=== PATIENT | female | born 1960 | race Caucasian/White ===

== ENCOUNTER 2022-08-08 11:23 | Outpatient (CLI) | payer OTHER, SELFPAY ==
[2022-08-08 21:34] LABS: Alanine Aminotransferase* 12 U/L (4-35); Aspartate Amino Transferase* 25 U/L (12-35); Cholesterol* 266 mg/dL (90-199); HDL Cholesterol* 93 mg/dL (>=50); LDL Cholesterol Calculated 161 mg/dL (<100); Triglycerides* 60 mg/dL (40-149)
== END 2022-08-08 11:24 | disposition home or self-care (01) ==
PROVIDERS: PCP Physician Assistant Medical; Visit Provider Physician Assistant Medical
DX: E78.2 Mixed hyperlipidemia (principal); M85.80 Other specified disorders of bone density and structure, unspecified site; F41.9 Anxiety disorder, unspecified; F32.A Depression, unspecified
CPT/HCPCS: 80061; 84450; 84460

== ENCOUNTER 2022-08-29 12:53 | Outpatient (CLI) | payer OTHER, SELFPAY ==
--- NOTE | 2022-08-29 13:00 | CRLHL7_ITS ---
For Patients: As a result of the Century Cures Act, medical imaging exams and procedure reports are released immediately into your electronic medical record. You may view this report before your referring provider. If you have questions, please contact your health care provider. DXA BONE MINERAL DENSITY STUDY Reason for exam: Screening. Current height (in): 67. Weight (lb): 142. Menopause age: 57. Ethnicity: White. 1. Have you had a previous hip or vertebral fracture? No. 2. Have you had any fractures during your adult life which did not result from significant trauma (e.g., auto accident)? Yes. 3. Did either of your parents have a hip fracture? No. 4. Do you smoke? No. 5. Have you ever taken Glucocorticoids? No. 6. Do you have rheumatoid arthritis? No. 7. Do you have secondary osteoporosis? No. 8. Do you drink 3 or more alcoholic drinks per day? Yes. 9. Are you being treated for osteoporosis? No. 10. Have you ever taken any of the following medications: Actonel, Evista, Fosamax, Miacalcin, Reclast, Boniva, Forteo, HRT (i.e. estrogen/hormone therapy), Protelos, Prolia, Vitamin D, Calcium, other ??? please specify. ANSWER: Yes, vitamin D, calcium. 11. Do you have any of the following medical conditions: Anorexia or bulimia, asthma or emphysema, end stage renal disease, hyperparathyroidism, any seizure disorders, cancer, inflammatory bowel diseases, hysterectomy, other ??? please specify. ANSWER: No. 12. What was your maximum height (inches)? 67. 13. Do you perform weight bearing exercise regularly? Yes. 14. Do you regularly consume dairy products? No. 15. Do you drink caffeinated beverages? Yes. If female: 16. At what age did your period start? 12. 17. Are you premenopausal? No. 18. How many full term pregnancies have you had? 2. 19. Have you ever missed your period for more than 6 months in a row (not including or menopause)? No. TECHNIQUE: Bone mineral density study was performed using the [employer]. FINDINGS: The results of the study expressed as bone mineral density (BMD) are as follows: Lumbar spine L1 to L4: BMD: 1.065 g/cm2. T-score: 0.2. Z-score: 1.8. Neck Left: BMD: 0.683 g/cm2. T-score: -1.5. Z-score: -0.1. Right: BMD: 0.784 g/cm2. T-score: -0.6 . Z-score: 0.8. Total Left: BMD: 0.774 g/cm2. T-score: -1.4.. Z-score: -0.2. Right: BMD: 0.823 g/cm2. T-score: -1.0. Z-score: 0.2. IMPRESSION: Osteopenia. *Comparison exams done prior to 04/2020 were performed on different unit, [facility]. COMPARISON: Compared with scan of 06/30/2018, the bone mineral density has decreased by 2.3 percent at the spine and decreased by 1.1 percent at the hip. FRAX 10-year Fracture Risk Major Osteoporotic Fracture: 16 percent Hip Fracture: 2.2 percent Reported Risk Factors: [place] () Neck BMD=0.683, BMI=22.2, previous fracture, alcohol use Sherry Faith M.D. Diagnostic/Breast Radiologist [email or web address] LUIS EDUARDO/Dictated by: Sherry Faith MD @ 08/29/2022 2:52:00 PM (Electronically Signed)
== END 2022-08-29 12:54 | disposition home or self-care (01) ==
LOC: RAD 12:54
PROVIDERS: PCP Physician Assistant Medical; Visit Provider Physician Assistant Medical
DX: Z13.820 Encounter for screening for osteoporosis (principal); M85.89 Other specified disorders of bone density and structure, multiple sites; Z78.0 Asymptomatic menopausal state
CPT/HCPCS: 77080

== ENCOUNTER 2023-03-28 07:18 | Outpatient (CLI) | payer OTHER, SELFPAY ==
--- NOTE | 2023-03-28 08:23 | W.ANESCHARGE ---
Anesthesia Charges Start Date/Time Anesthesia Start Date: 03/28/23 Anesthesia Start Time: 08:03 Stop Date/Time Anesthesia Stop Date: 03/28/23 Anesthesia Stop Time: 08:45
--- NOTE | 2023-03-28 08:46 | W.ANESCHARGE ---
Anesthesia Charges Start Date/Time Anesthesia Start Date: 03/28/23 Anesthesia Start Time: 08:03 Stop Date/Time Anesthesia Stop Date: 03/28/23 Anesthesia Stop Time: 08:45
== END 2023-03-28 07:19 | disposition home or self-care (01) ==
LOC: OP CLINIC 07:19
PROVIDERS: PCP Physician Assistant Medical; Visit Provider Surgery
DX: K92.1 Melena (principal); K57.30 Diverticulosis of large intestine without perforation or abscess without bleeding; K64.8 Other hemorrhoids
CPT/HCPCS: 45378; 811; 812; J2704; J3490

== ENCOUNTER 2023-09-30 13:41 | Outpatient (CLI) | payer OTHER, SELFPAY ==
--- NOTE | 2023-09-30 14:00 | CRLHL7_ITS ---
For Patients: As a result of the Century Cures Act, medical imaging exams and procedure reports are released immediately into your electronic medical record. You may view this report before your referring provider. If you have questions, please contact your health care provider. BILATERAL SCREENING MAMMOGRAM WITH COMPUTER-AIDED DETECTION AND TOMOSYNTHESIS TECHNIQUE: CC and MLO views were obtained. These mammographic images have been obtained using full-field digital technique. These mammographic images were interpreted with the benefit of computer-aided detection. Breast Tomosynthesis was used in this interpretation. COMPARISON FILM: 04/30/22, 01/06/21, 11/13/19. FINDINGS: The breasts are heterogeneously dense, which may obscure small masses IMPRESSION: There is no radiographic evidence for malignancy. ASSESSMENT: BI-RADS Category 1: Negative RECOMMENDATION: Routine screening mammogram in 1 year. A lay language report of this examination will be provided to the patient. Luis Caldwell M.D. Diagnostic Radiologist [email or web address] LUIS EDUARDO/Dictated by: Luis Caldwell MD @ 10/01/2023 8:41:00 AM (Electronically Signed)
== END 2023-09-30 13:42 | disposition home or self-care (01) ==
LOC: MAMMO 13:41
PROVIDERS: PCP Physician Assistant Medical; Visit Provider Physician Assistant Medical
DX: Z12.31 Encounter for screening mammogram for malignant neoplasm of breast (principal); R92.2 Inconclusive mammogram
CPT/HCPCS: 77063; 77067

== ENCOUNTER 2023-11-18 17:24 | Emergency (ER) | payer OTHER, SELFPAY ==
[2023-11-18 17:43] VITALS: BP 152/72; PULSE 61; RESP 18; TEMP 36.6; O2SAT 96; BMI 21.1
[2023-11-18] MEDS: FLUORESCEIN SODIUM TOPICAL STRIP 1 STRIP EYE-RIGHT (18:40)
[2023-11-18] MEDS: TETRACAINE 0.5% OPHTH 1 DROP EYE-RIGHT (18:40)
--- NOTE | 2023-11-18 18:48 | ED.EYEPROB ---
HPI - Eye Problem General Date Seen: 11/18/23 Chief complaint: Eye Problems Stated complaint: eye irritation Time Seen by Provider: 11/18/23 17:48 Source: patient Mode of arrival: ambulatory Limitations: no limitations History of Present Illness HPI Narrative: Patient is a 63-year-old female who some she had right eye discharge that started earlier today. She states she woke up and was asymptomatic. She went outside into her [place] and by the time she came back and she noted copious drainage from right eye. She has never had symptoms like this before. She states vision in the right eye is blurry but not black. Does have pain in the right upper portion of the eye. Does not remember getting anything in her eye. Denies any injuries to the eye. Does not have pain with extraocular movement. Says she has noticed some swelling to the eye. Related Data Home Medications Medication Instructions Recorded Confirmed ibuprofen 400 mg tablet 400 mg PO Q6H PRN moderate pain 02/28/23 05/24/23 calcium carbonate 600 mg calcium 600 mg PO QDAY 05/24/23 05/24/23 (1,500 mg) tablet (Calcium) Previous Rx's Medication Instructions Recorded sertraline 50 mg tablet 50 mg PO QDAY #90 tabs 05/24/23 trazodone 100 mg tablet 100 - 200 mg (1 - 2 x 100 mg) PO 05/24/23 QDAY #180 tabs Allergies Allergy/AdvReac Type Severity Reaction Status Date / Time No Known Drug Allergies Allergy Verified 05/24/23 13:24 Review of Systems Status of ROS: Reports: 6 or more systems reviewed and unremarkable except as noted in History and below PFSH PFSH Medical History Right wrist fracture ?S62.101A - Fracture of unspecified carpal bone, right wrist, initial encounter for closed fracture (ICD-10) Polyp of colon ?K63.5 - Polyp of colon (ICD-10) Rectal bleeding ?K62.5 - Hemorrhage of anus and rectum (ICD-10) Eating disorder (12/31/11) ?F50.9 - Eating disorder, unspecified (ICD-10) Closed fracture of head of humerus ?S42.293A - Other displaced fracture of upper end of unspecified humerus, initial encounter for closed fracture (ICD-10) Surgical History S/P ORIF (open reduction internal fixation) fracture (04/23/13) ?Z98.890 - Other specified postprocedural states (ICD-10) ?Z87.81 - Personal history of (healed) traumatic fracture (ICD-10) History of knee surgery ?Z98.890 - Other specified postprocedural states (ICD-10) Family History Father Cardiovascular disease Mother Mental disorder Osteoporosis Social History Smoking Status: Never smoker Do you use any of these nicotine containing products: None Second hand tobacco smoke exposure: No Little interest or pleasure in doing things: not at all Feeling down, depressed, or hopeless: not at all Exam Narrative: Exam Narrative: Const: Well-nourished, Well-developed, in mild distress Eyes: PERRL, conjunctival injection nose to the right RI, erythema seen around the right eye. Copious green drainage coming from the right eye HENT: Atraumatic external nose and ears. Moist mucous membranes. Neck: Symmetric, trachea midline, No thyromegaly. MSK:Extremities w/o deformity, Normal Active ROM Skin: Warm, Dry. No rashes or lesions. Neuro: Normal Muscle tone, No focal neurological deficits. Psych: Awake, Alert, & Oriented x3. Appropriate mood and affect. Const: Vital Signs, click to edit/add: Vital Signs - 24 hr 11/18/23 17:43 Temperature 97.9 F Pulse Rate [Pulse Oximeter] 61 Respiratory Rate 18 Blood Pressure [Ri ght Upper Arm] 152/72 H Pulse Oximetry 96 Oxygen Delivery Me thod Room Air Course Vital Signs Vital signs: Initial Vital Signs Temperature 97.9 F 11/18/23 17:43 Temperature Source Temporal Artery Scan 11/18/23 17:43 Pulse Rate 61 11/18/23 17:43 Pulse Rhythm Regular 11/18/23 17:43 Respiratory Rate 18 11/18/23 17:43 Blood Pressure 152/72 H 11/18/23 17:43 Blood Pressure Mean 98 11/18/23 17:43 Blood Pressure Position Sitting 11/18/23 17:43 Pulse Oximetry 96 11/18/23 17:43 Oxygen Delivery Method Room Air 11/18/23 17:43 Vital Signs Temperature 97.9 F 11/18/23 17:43 Pulse Rate 61 11/18/23 17:43 Respiratory Rate 18 11/18/23 17:43 Blood Pressure 152/72 H 11/18/23 17:43 Pulse Oximetry 96 11/18/23 17:43 Oxygen Delivery Method Room Air 11/18/23 17:43 Temperature 97.9 F 11/18/23 17:43 Pulse Rate 61 11/18/23 17:43 Respiratory Rate 18 11/18/23 17:43 Blood Pressure 152/72 H 11/18/23 17:43 Pulse Oximetry 96 11/18/23 17:43 Oxygen Delivery Method Room Air 11/18/23 17:43 Medications Administered Medications: Generic Name Dose Route Start Last Admin Trade Name Freq PRN Reason Stop Dose Admin Erythromycin 1 applic 11/18/23 18:47 11/18/23 18:50 Erythromycin 1 Gm Tube EYE-BOTH 11/18/23 18:48 1 applic ONCE ONE Administration MDM - Eye Problem MDM Narrative Medical decision making narrative: Patient is a 63-year-old female presenting for right eye pain and drainage with vision loss. Has never had symptoms like this before. Her vision in the left eye without glasses is 20/40 and in the right eye is 20/100 at this time. I looked at her eye under a black light did not see any acute abnormalities. I did do a slit lamp exam he could not see any clear abnormalities. No new thing I did notice is the conjunctivitis to the right eye and the no bowel amount of drainage. With her vision issues I informed them I was wanting to call an power system engineer at an outside hospital to get their opinion. They told me they do not want to drive to the [facility] for possible transfer or appointment and just want to follow-up outpatient. They do not want to wait for the consult. They state they can easily get in with her venereal disease investigator who will then get them to an power system engineer. I did give them information for an power system engineer in [place]. I explained to them the seriousness at this time and informed them they need emergent follow-up within 48 hours with the preferably being within 24 hours. They state they understand. At this time I will discharge them. Discharge Plan Discharge Clinical Impression: Bacterial conjunctivitis Patient Disposition: Home, Self-Care Condition: Stable Instructions: Conjunctivitis (ED) Additional Instructions: Make sure you see your venereal disease investigator tomorrow. I recommend seeing Ophthalmology within 24-48 hours. [facility] and you can call the clinic to set up an appointment. Use the erythromycin eye ointment every 6 hours for the next 7 days Prescriptions: No Action calcium carbonate [Calcium 600] 600 mg calcium (1,500 mg) tablet 600 mg PO QDAY sertraline 50 mg tablet 50 mg PO QDAY Qty: 90 3RF trazodone 100 mg tablet 100 - 200 mg PO QDAY Qty: 180 3RF ibuprofen 400 mg tablet 400 mg PO Q6H PRN (Reason: moderate pain) Follow Up/Referrals: Conor Ferrell PA-C [Primary Care Provider] - Stand Alone Forms: [employer] Info Instructions
[2023-11-18] MEDS: ERYTHROMYCIN 1 GM TUBE 1 APPLIC EYE-BOTH (18:50)
== END 2023-11-18 19:09 | disposition home or self-care (01) ==
PROVIDERS: Emergency Provider Student in an Organized Health Care Education/Training Program; PCP Physician Assistant Medical
DX: H10.021 Other mucopurulent conjunctivitis, right eye (principal)
CPT/HCPCS: 99283; A9270

== ENCOUNTER 2023-11-29 08:21 | Outpatient (CLI) | payer OTHER, SELFPAY | END 2023-11-29 08:22 | disposition home or self-care (01) | PROVIDERS: PCP Physician Assistant Medical; Visit Provider Physician Assistant Medical | DX: Z00.00 Encounter for general adult medical examination without abnormal findings (principal); E78.5 Hyperlipidemia, unspecified; L65.9 Nonscarring hair loss, unspecified | CPT/HCPCS: 80053; 80061; 82728; 84443 ==

== ENCOUNTER 2024-04-15 13:59 | Outpatient (CLI) | payer MEDICARE, OTHER, SELFPAY ==
--- NOTE | 2024-04-15 14:30 | XR_ITS ---
Patient: BRIANNA GIRON Facility:?[facility] Patient ID:?[id number] Site Patient ID:?[id number]. Site :?[id number] Study:?DEXA-Bone Density -04/15/2024 2:57:25 PM Ordering Physician:DAVIN Final Report: DXA BONE MINERAL DENSITY STUDY Reason for exam: Asymptomatic menopausal state. Current height (in): 67. Weight (lb): 138. Menopause age: 57. Ethnicity: White. 1. Have you had a previous hip or vertebral fracture? No. 2. Have you had any fractures during your adult life which did not result from significant trauma (e.g., auto accident)? Yes. 3. Did either of your parents have a hip fracture? No. 4. Do you smoke? No. 5. Have you ever taken Glucocorticoids? No. 6. Do you have rheumatoid arthritis? No. 7. Do you have secondary osteoporosis? No. 8. Do you drink 3 or more alcoholic drinks per day? No. 9. Are you being treated for osteoporosis? No. 10. Have you ever taken any of the following medications: Actonel, Evista, Fosamax, Miacalcin, Reclast, Boniva, Forteo, HRT (i.e. estrogen/hormone therapy), Protelos, Prolia, Vitamin D, Calcium, other ? please specify. ANSWER: Yes, vitamin D and calcium. 11. Do you have any of the following medical conditions: Anorexia or bulimia, asthma or emphysema, end stage renal disease, hyperparathyroidism, any seizure disorders, cancer, inflammatory bowel diseases, hysterectomy, other ? please specify. ANSWER: No. 12. What was your maximum height (inches)? 67. 13. Do you perform weight bearing exercise regularly? Yes. 14. Do you regularly consume dairy products? No. 15. Do you drink caffeinated beverages? Yes. 16. At what age did your period start? 12. 17. Are you premenopausal? No. 18. How many full term pregnancies have you had? 2. 19. Have you ever missed your period for more than 6 months in a row (not including or menopause)? No. TECHNIQUE: Bone mineral density study was performed using the [employer]. FINDINGS: The results of the study expressed as bone mineral density (BMD) are as follows: Lumbar spine L1 to L4: BMD: 1.011 g/cm2. T-score: -0.3. Z-score: 1.4. Neck Left: BMD: 0.635 g/cm2. T-score: -1.9. Z-score: -0.4. Right: BMD: 0.850 g/cm2. T-score: 0.0. Z-score: 1.5. Total Left: BMD: 0.773 g/cm2. T-score: -1.4. Z-score: -0.2. Right: BMD: 0.805 g/cm2. T-score: -1.1. Z-score: 0.1. IMPRESSION: Osteopenia. *Comparison exams done prior to 04/2020 were performed on different unit, [facility]. COMPARISON: Compared with scan of 08/29/2022, the bone mineral density has decreased by 5.1 percent at the spine and decreased by 1.2 percent at the hip. Compared with scan of 06/30/2018, the bone mineral density has decreased by 2.3 percent at the spine and decreased by 1.1 percent at the hip. FRAX 10-year Fracture Risk Major Osteoporotic Fracture: 16 percent Hip Fracture: 2.4 percent Reported Risk Factors: [place] () Neck BMD=0.635, BMI=21.6, previous fracture Luis Caldwell M.D. Diagnostic Radiologist [email or web address]/sp R& Transcribed: 8:02 p.m. SP/Dictated by: Luis Caldwell MD @ 04/16/2024 9:20:00 AM Signed by:?Luis Caldwell MD @04/17/2024 5:25:06 AM (Electronic Signature)
== END 2024-04-15 14:00 | disposition home or self-care (01) ==
LOC: RAD 14:01
PROVIDERS: PCP Physician Assistant Medical; Visit Provider Physician Assistant Medical
DX: Z78.0 Asymptomatic menopausal state (principal); M85.89 Other specified disorders of bone density and structure, multiple sites
CPT/HCPCS: 77080

== ENCOUNTER 2024-08-14 13:48 | Emergency (ER) | payer MEDICARE, OTHER, SELFPAY ==
[2024-08-14] VITALS (15 sets, daily range): BP systolic 142–160; BP diastolic 70–85; PULSE 66–76; RESP 14–20; TEMP 36.4–36.8; O2SAT 94–100; BMI 21.9
--- NOTE | 2024-08-14 13:59 | ED.NURSE ---
Jewelry removed for imaging. 4 Rings, necklace, and one pair of earrings given to , Lee.
--- NOTE | 2024-08-14 14:01 | CRLHL7_ITS ---
For Patients: As a result of the Century Cures Act, medical imaging exams and procedure reports are released immediately into your electronic medical record. You may view this report before your referring provider. If you have questions, please contact your health care provider. INDICATION: Fall TECHNIQUE: CT chest, abdomen and pelvis acquired 69 milliliters Isovue 370 contrast. COMPARISON: Cervical spine same day FINDINGS: CHEST: Lungs and Airways: Motion. Subsegmental atelectasis. Lobulated right lower lobe indeterminate pulmonary nodule measuring 19 millimeters. Ground-glass opacity in the right apex measuring 12 millimeters. Axial image 33. no endoluminal lesion. Heart and Mediastinum: The visualized portions of the thyroid are normal. No axillary or supraclavicular lymphadenopathy. No mediastinal, hilar or retrocrural lymphadenopathy. Normal heart size. Normal caliber aorta. Atherosclerotic coronary artery calcifications. Pleura: Less than 1 millimeter trace right apical pneumothorax. ABDOMEN: Liver: Normal enhancement. No focal suspicious hepatic lesions. Gallbladder and biliary: 4 millimeter nodular focus abutting the gallbladder wall may reflect an adherent stone versus polyp. Normal caliber bile ducts. Spleen: Normal size and enhancement. Pancreas: Normal enhancement without peripancreatic inflammatory changes or ductal dilatation. Adrenal glands: Normal adrenal glands. Kidneys and ureters: Normal enhancement. No radio-opaque calculi. No hydroureteronephrosis. GI tract: The stomach is relatively decompressed. Normal caliber small and large bowel loops. Normal appendix. Vascular structures: Normal caliber aorta with atherosclerotic calcifications. Lymph nodes: No lymphadenopathy in the abdomen or pelvis by size criteria. Peritoneum: No free air, free fluid, or focal drainable fluid collection. PELVIS: Genitourinary system: Normal urinary bladder. Age-appropriate uterus. SKELETAL STRUCTURES AND SOFT TISSUES: Tiny fat containing umbilical hernia. Refer to dedicated CT thoracic and lumbar spine of same day for evaluation of the vertebral column. Acute distal right comminuted clavicular fracture. Posterior right 2nd, 3rd, 4th, 5th, and likely 6th acute nondisplaced rib fractures. Potential additional nondisplaced fracture component in the lateral right 6th and 7th ribs. IMPRESSION: 1. Acute distal right comminuted clavicular fracture. Posterior right 2nd, 3rd, 4th, 5th, and likely 6th acute nondisplaced rib fractures. Potential additional nondisplaced fracture component in the lateral right 6th and 7th ribs. Associated less than 1 millimeter trace right apical pneumothorax. 2. Lobulated right lower lobe indeterminate pulmonary nodule measuring 19 millimeters. Differential considerations include underlying primary lung cancer. Consider further assessment with nonemergent tissue sampling versus PET-CT. 3. Additional ill-defined ground-glass opacity in the right apex may reflect underlying pulmonary contusion versus nodule. Attention on follow-up exams. 4. 4 millimeter nodular focus abutting the gallbladder wall may reflect an adherent stone versus polyp. 5. Refer to dedicated CT thoracic and lumbar spine of same day for evaluation of the vertebral column. Please note that all CT scans at this facility use dose modulation, iterative reconstruction, and/or weight-based dosing when appropriate to reduce radiation dose to as low as reasonably achievable. Dictated by Luis Munguia MD @ 08/14/2024 2:53:05 PM (Electronically Signed)
--- NOTE | 2024-08-14 14:01 | CRLHL7_ITS ---
For Patients: As a result of the Century Cures Act, medical imaging exams and procedure reports are released immediately into your electronic medical record. You may view this report before your referring provider. If you have questions, please contact your health care provider. INDICATION: .FALL TECHNIQUE: CT cervical spine without contrast. COMPARISON: Head and chest abdomen and pelvis of same day. FINDINGS: Acute nondisplaced posterior right 2nd and 3rd rib fractures. Associated trace, less than 1 millimeter, right apical pneumothorax. No discrete acute cervical fracture.. No listhesis. Bony mineralization is age appropriate. No prevertebral soft tissue hematoma or swelling. No soft tissue abnormality is identified. Multilevel spondylosis. No pathologically enlarged lymph nodes. Thyroid is normal. IMPRESSION: 1. Acute nondisplaced posterior right 2nd and 3rd rib fractures. Associated trace, less than 1 millimeter, right apical pneumothorax. 2. No discrete acute cervical fracture. Please note that all CT scans at this facility use dose modulation, iterative reconstruction, and/or weight-based dosing when appropriate to reduce radiation dose to as low as reasonably achievable. Dictated by Luis Munguia MD @ 08/14/2024 2:39:09 PM (Electronically Signed)
--- NOTE | 2024-08-14 14:02 | CRLHL7_ITS ---
For Patients: As a result of the Century Cures Act, medical imaging exams and procedure reports are released immediately into your electronic medical record. You may view this report before your referring provider. If you have questions, please contact your health care provider. INDICATION: Trauma, fall. TECHNIQUE: CT thoracic spine without contrast. COMPARISON: CT same day. FINDINGS: No acute vertebral fracture. No listhesis. Bony mineralization is age appropriate. No prevertebral soft tissue hematoma or swelling. No soft tissue abnormality is identified. Mild generalized disc space narrowing. IMPRESSION: No sign of acute vertebral injury. Please note that all CT scans at this facility use dose modulation, iterative reconstruction, and/or weight-based dosing when appropriate to reduce radiation dose to as low as reasonably achievable. Dictated by Luis Munguia MD @ 08/14/2024 2:55:32 PM (Electronically Signed)
--- NOTE | 2024-08-14 14:02 | CRLHL7_ITS ---
For Patients: As a result of the Cures Act, medical imaging exams and procedure reports are released immediately into your electronic medical record. You may view this report before your referring provider. If you have questions, please contact your health care provider. INDICATION: Fall. TECHNIQUE: CT lumbar spine without contrast. COMPARISON: Same day. FINDINGS: No acute fracture. No listhesis. Bony mineralization is age appropriate. No prevertebral soft tissue hematoma or swelling. No soft tissue abnormality is identified. Mild multilevel lumbar spondylosis. IMPRESSION: Unremarkable lumbar spine CT. Please note that all CT scans at this facility use dose modulation, iterative reconstruction, and/or weight-based dosing when appropriate to reduce radiation dose to as low as reasonably achievable. Dictated by Luis Munguia MD @ 08/14/2024 2:57:39 PM (Electronically Signed)
--- NOTE | 2024-08-14 14:02 | CRLHL7_ITS ---
For Patients: As a result of the Century Cures Act, medical imaging exams and procedure reports are released immediately into your electronic medical record. You may view this report before your referring provider. If you have questions, please contact your health care provider. INDICATION: Fall. TECHNIQUE: Head CT without contrast. COMPARISON: None. FINDINGS: Periventricular areas of low attenuation, likely due to chronic small vessel ischemic changes. Generalized volume loss. Atherosclerosis. Beam hardening artifact predominantly at the level of skullbase degrades fine detail evaluation. No intracranial hemorrhage. No discrete mass or mass effect. There is no midline shift. The basilar cisterns are patent. No hydrocephalus. The saba-white matter interface is otherwise preserved. No acute osseous abnormality. No extracalvarial soft tissue abnormality. The mastoid air cells are clear. Trace air-fluid level in the sphenoid sinus. The visualized portions of the orbits and globes are unremarkable. IMPRESSION: No acute intracranial process per unenhanced head CT. Please note that all CT scans at this facility use dose modulation, iterative reconstruction, and/or weight-based dosing when appropriate to reduce radiation dose to as low as reasonably achievable. Dictated by Luis Munguia MD @ 08/14/2024 2:32:31 PM (Electronically Signed)
--- NOTE | 2024-08-14 14:39 | ED_ITS ---
HPI - General Adult General Chief complaint: Fall/Minor Trauma Stated complaint: Fall from horse Time Seen by Provider: 08/14/24 14:01 Source: patient Mode of arrival: EMS Limitations: no limitations History of Present Illness HPI narrative: 64-year-old female coming in today after getting bucked off her horse. Patient states she was riding fairly large worse when it got spooked and she fell off the horse onto her side. She is complaining of head, neck, shoulder, arm, chest pain. All the pain is on the right side. She denies abdomen or pelvic pain. No pain of the lower extremities. Related Data Home Medications ?Medication ?Instructions ?Recorded ?Confirmed ibuprofen 400 mg tablet 400 mg PO Q6H PRN moderate pain 02/28/23 05/20/24 calcium carbonate (Calcium 600) 600 mg PO QDAY 05/24/23 05/20/24 [id number] 8 mg-folic 400 1 tab PO QDAY 05/04/24 05/20/24 mcg-K 50 mcg-lutein 300 mcg tablet (Centrum Silver Women) sertraline 50 mg tablet 50 mg PO QDAY 05/04/24 05/20/24 trazodone 100 mg tablet 100 mg PO QHS PRN 05/04/24 05/20/24 Allergies Allergy/AdvReac Type Severity Reaction Status Date / Time No Known Drug Allergies Allergy Verified 08/14/24 14:09 Review of Systems Status of ROS: Reports: 10 or more systems reviewed and unremarkable except as noted in History and below PFSH PFS Medical History Right wrist fracture ?S62.101A - Fracture of unspecified carpal bone, right wrist, initial encounter for closed fracture (ICD-10) Bacterial conjunctivitis ?H10.9 - Unspecified conjunctivitis (ICD-10) Polyp of colon ?K63.5 - Polyp of colon (ICD-10) Rectal bleeding ?K62.5 - Hemorrhage of anus and rectum (ICD-10) Eating disorder (12/31/11) ?F50.9 - Eating disorder, unspecified (ICD-10) Closed fracture of head of humerus ?S42.293A - Other displaced fracture of upper end of unspecified humerus, initial encounter for closed fracture (ICD-10) Surgical History S/P ORIF (open reduction internal fixation) fracture (04/23/13) ?Z98.890 - Other specified postprocedural states (ICD-10) ?Z87.81 - Personal history of (healed) traumatic fracture (ICD-10) History of knee surgery ?Z98.890 - Other specified postprocedural states (ICD-10) Family History Father Cardiovascular disease Mother Mental disorder Osteoporosis Social History Smoking Status: Never smoker Do you use any of these nicotine containing products: None Second hand tobacco smoke exposure: No How often do you have a drink containing alcohol: 2-3 times a week AUDIT-C Alcohol total score: 3 Non-prescribed substance use: denies use Little interest or pleasure in doing things: not at all Feeling down, depressed, or hopeless: several days Exam Narrative: Exam Narrative: Well-nourished well-developed patient, extremely anxious. Alert and oriented x3. Answers questions appropriately. Thoughts are goal oriented and rational. No tangential or magical thinking noted. Patient speaks in full sentences without needing to catch her breath. GCS is 15. Patient is speaking and breathing without difficulty. There is no obvious significant bleeding noted. Patient's responses are heightened, with light touch to anywhere in the body patient yells in discomfort. She had to be redirected to really focus on where the pain is located. HEENT: Normocephalic atraumatic. Pupils are equally round reactive to light. Extraocular muscles are intact. Conjunctivae are moist without any icterus noted. Moist mucous membranes. Posterior pharynx is normal. No trauma noted to the inside of the mouth. Neck is soft without any lymphadenopathy or thyromegaly. No masses are appreciated. Cardiovascular: Heart is regular rate and rhythm S1 and S2 are present without any murmurs. Lungs: Clear to auscultation bilaterally no wheezes rhonchi or rales are appreciated. Deep breaths causes pain on the right lateral thorax. Patient has tenderness over the right clavicle. Abdomen: Soft and nontender nondistended with normal bowel sounds. No guarding or rebound. No masses or organomegaly appreciated. Extremities: Bilateral lower extremities are without edema. Normal DP and PT pulses. No tenderness to palpation of the pelvis. Moves lower extremities without difficulty. Skin: Well perfused without any obvious rashes. Back: Normal appearance. Patient has no tenderness to palpation at the thoracic or lumbar spine. She complains of pain to palpation of the neck. Const: Vital Signs, click to edit/add: Vital Signs - 24 hr 08/14/24 13:48 Temperature 98.3 F Pulse Rate [Pulse Oximeter] 76 Respiratory Rate 20 Blood Pressure [Le ft Upper Arm] 151/70 H Pulse Oximetry 98 Oxygen Delivery Me thod Room Air Course Course ED Course: Given the amount of pain the patient was in and her inability to focus on where the exact pain was coming from, we did decide to buck scan her: Head CT without abnormality. Cervical spine CT showing Acute nondisplaced posterior right 2nd and 3rd rib fractures. Associated trace, less than 1 millimeter, right apical pneumothorax. Thoracic spine unremarkable. Lumbar spine unremarkable. Chest, abdomen, pelvis CT showed fractures of ribs 2, 3, 4, 5, 6 and potentially 7. Clavicular fracture. Also noted pulmonary nodule concerning for malignancy. Spoke to Dr. Florence, at [facility] [place] patient for transfer. Vital Signs Vital signs: Initial Vital Signs Temperature 98.3 F 08/14/24 13:48 Temperature Source Temporal Artery Scan 08/14/24 13:48 Pulse Rate 76 08/14/24 13:48 Pulse Rhythm Regular 08/14/24 13:48 Respiratory Rate 08/14/24 13:48 Blood Pressure 151/70 H 08/14/24 13:48 Blood Pressure Mean 97 08/14/24 13:48 Blood Pressure Position Sitting 08/14/24 13:48 Pulse Oximetry 98 08/14/24 13:48 Oxygen Delivery Method Room Air 08/14/24 13:48 Vital Signs Temperature 98.3 F 08/14/24 13:48 Pulse Rate 76 08/14/24 13:48 Respiratory Rate 20 08/14/24 13:48 Blood Pressure 151/70 H 08/14/24 13:48 Pulse Oximetry 98 08/14/24 13:48 Oxygen Delivery Method Room Air 08/14/24 13:48 Temperature 98.3 F 08/14/24 13:48 Pulse Rate 76 08/14/24 13:48 Respiratory Rate 20 08/14/24 13:48 Blood Pressure 151/70 H 08/14/24 13:48 Pulse Oximetry 98 08/14/24 13:48 Oxygen Delivery Method Room Air 08/14/24 13:48 Medical Decision Making MDM Narrative Medical decision making narrative: 64-year-old female status post falling off a horse with multiple rib fractures, clavicular fracture. Patient will be sent to [facility] [place] further management. I did discuss with the patient and her the results of her CT scans including the pulmonary nodule that is concerning for malignancy. Imaging Data CT scan - head: Attestation: I have reviewed the pertinent imaging results. Radiologist's impression: Head CT without contrast. COMPARISON: None. FINDINGS: Periventricular areas of low attenuation, likely due to chronic small vessel ischemic changes. Generalized volume loss. Atherosclerosis. Beam hardening artifact predominantly at the level of skullbase degrades fine detail evaluation. No intracranial hemorrhage. No discrete mass or mass effect. There is no midline shift. The basilar cisterns are patent. No hydrocephalus. The saba-white matter interface is otherwise preserved. No acute osseous abnormality. No extracalvarial soft tissue abnormality. The mastoid air cells are clear. Trace air-fluid level in the sphenoid sinus. The visualized portions of the orbits and globes are unremarkable. IMPRESSION: No acute intracranial process per unenhanced head CT. Cervical spine CT: Attestation: I have reviewed the pertinent imaging results. Radiologist's impression: CT cervical spine without contrast. COMPARISON: Head and chest abdomen and pelvis of same day. FINDINGS: Acute nondisplaced posterior right 2nd and 3rd rib fractures. Associated trace, less than 1 millimeter, right apical pneumothorax. No discrete acute cervical fracture.. No listhesis. Bony mineralization is age appropriate. No prevertebral soft tissue hematoma or swelling. No soft tissue abnormality is identified. Multilevel spondylosis. No pathologically enlarged lymph nodes. Thyroid is normal. IMPRESSION: 1. Acute nondisplaced posterior right 2nd and 3rd rib fractures. Associated trace, less than 1 millimeter, right apical pneumothorax. 2. No discrete acute cervical fracture. Thoracic spine CT: Attestation: I have reviewed the pertinent imaging results. Radiologist's impression: CT thoracic spine without contrast. COMPARISON: CT same day. FINDINGS: No acute vertebral fracture. No listhesis. Bony mineralization is age appropriate. No prevertebral soft tissue hematoma or swelling. No soft tissue abnormality is identified. Mild generalized disc space narrowing. IMPRESSION: No sign of acute vertebral injury. Lumbar spine CT: Attestation: I have reviewed the pertinent imaging results. Radiologist's impression: CT lumbar spine without contrast. COMPARISON: Same day. FINDINGS: No acute fracture. No listhesis. Bony mineralization is age appropriate. No prevertebral soft tissue hematoma or swelling. No soft tissue abnormality is identified. Mild multilevel lumbar spondylosis. CT Chest/Ab/Pelvis: Attestation: I have reviewed the pertinent imaging results. Radiologist's impression: CT chest, abdomen and pelvis acquired 69 milliliters Isovue 370 contrast. COMPARISON: Cervical spine same day FINDINGS: CHEST: Lungs and Airways: Motion. Subsegmental atelectasis. Lobulated right lower lobe indeterminate pulmonary nodule measuring 19 millimeters. Ground-glass opacity in the right apex measuring 12 millimeters. Axial image 33. no endoluminal lesion. Heart and Mediastinum: The visualized portions of the thyroid are normal. No axi llary or supraclavicular lymphadenopathy. No mediastinal, hilar or retrocrural lymphadenopathy. Normal heart size. Normal caliber aorta. Atherosclerotic coronary artery calcifications. Pleura: Less than 1 millimeter trace right apical pneumothorax. ABDOMEN: Liver: Normal enhancement. No focal suspicious hepatic lesions. Gallbladder and biliary: 4 millimeter nodular focus abutting the gallbladder wall may reflect an adherent stone versus polyp. Normal caliber bile ducts. Spleen: Normal size and enhancement. Pancreas: Normal enhancement without peripancreatic inflammatory changes or ductal dilatation. Adrenal glands: Normal adrenal glands. Kidneys and ureters: Normal enhancement. No radio-opaque calculi. No hydroureteronephrosis. GI tract: The stomach is relatively decompressed. Normal caliber small and large bowel loops. Normal appendix. Vascular structures: Normal caliber aorta with atherosclerotic calcifications. Lymph nodes: No lymphadenopathy in the abdomen or pelvis by size criteria. Peritoneum: No free air, free fluid, or focal drainable fluid collection. PELVIS: Genitourinary system: Normal urinary bladder. Age-appropriate uterus. SKELETAL STRUCTURES AND SOFT TISSUES: Tiny fat containing umbilical hernia. Refer to dedicated CT thoracic and lumbar spine of same day for evaluation of the vertebral column. Acute distal right comminuted clavicular fracture. Post erior right 2nd, 3rd, 4th, 5th, and likely 6th acute nondisplaced rib fractures. Potential additional nondisplaced fracture component in the lateral right 6th and 7th ribs. IMPRESSION: 1. Acute distal right comminuted clavicular fracture. Posterior right 2nd, 3rd, 4th, 5th, and likely 6th acute nondisplaced rib fractures. Potential additional nondisplaced fracture component in the lateral right 6th and 7th ribs. Associated less than 1 millimeter trace right apical pneumothorax. 2. Lobulated right lower lobe indeterminate pulmonary nodule measuring 19 millimeters. Differential considerations include underlying primary lung cancer. Consider further assessment with nonemergent tissue sampling versus PET-CT. 3. Additional ill-defined ground-glass opacity in the right apex may reflect underlying pulmonary contusion versus nodule. Attention on follow-up exams. 4. 4 millimeter nodular focus abutting the gallbladder wall may reflect an adherent stone versus polyp. 5. Refer to dedicated CT thoracic and lumbar spine of same day for evaluation of the vertebral column. Discharge Plan Discharge Clinical Impression: Trauma, Multiple fractures of ribs, Clavicle fracture, Pulmonary nodule Patient Disposition: Xfer Other Discharge Location: [facility] Condition: Guarded Prescriptions: No Action calcium carbonate [Calcium 600] 600 mg calcium (1,500 mg) tablet 600 mg PO QDAY Centrum Silver Women 8 mg iron-400 mcg-50 mcg tablet 1 tab PO QDAY sertraline 50 mg tablet 50 mg PO QDAY trazodone 100 mg tablet 100 mg PO QHS PRN ibuprofen 400 mg tablet 400 mg PO Q6H PRN (Reason: moderate pain) Follow Up/Referrals: Conor Ferrell PA-C [Primary Care Provider] - Stand Alone Forms: [facility] Info Instructions
[2024-08-14] MEDS: HYDROmorphone 0.5 mg/0.5 ml inj IVP (15:35)
--- NOTE | 2024-08-14 16:38 | ED.NURSE ---
Report given to [facility].
== END 2024-08-14 16:00 | disposition other institution (70) ==
PROVIDERS: Emergency Provider Family Medicine; PCP Physician Assistant Medical
DX: S42.001A Fracture of unspecified part of right clavicle, initial encounter for closed fracture (principal); S22.41XA Multiple fractures of ribs, right side, initial encounter for closed fracture; V80.010A Animal-rider injured by fall from or being thrown from horse in noncollision accident, initial encounter; R91.1 Solitary pulmonary nodule
CPT/HCPCS: 70450; 71260; 72125; 72128; 72131; 74177; 94761; 96374; 99284; 99285; 99291; G0390; J1170; Q9967

== ENCOUNTER 2024-08-14 15:47 | Outpatient (CLI) | payer MEDICARE, OTHER, SELFPAY | END 2024-08-14 15:48 | disposition home or self-care (01) | LOC: AMB 08-16 08:12 | PROVIDERS: PCP Physician Assistant Medical; Visit Provider Family Medicine | DX: S22.49XA Multiple fractures of ribs, unspecified side, initial encounter for closed fracture (principal); S42.009A Fracture of unspecified part of unspecified clavicle, initial encounter for closed fracture; R91.1 Solitary pulmonary nodule | CPT/HCPCS: A0425; A0427 ==

== ENCOUNTER 2025-04-05 13:51 | Emergency (ER) | payer OTHER, MEDICARE, SELFPAY ==
--- OUTSIDE RECORDS SUMMARY | 2025-04-05 13:53 | XMS_ITS | Clinical Summary ---
Author Organization [facility] Address [address] [place] [address]. [place] [address] Care Team Providers Care Television Service Engineer Name Role Phone No Ref-Primary, Physician Primary Care Provider Medications bacitracin 500 UNIT/GM external ointment Apply topically 2 times daily 120 g 9 Active Wound Dressings (ADAPTIC NON-ADHERING DRESSING) PADS Apply 1 layer of Adaptic nonadherent dressing to your wound and covered with bacitracin daily. 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 Gender Identity Not on file Sexual Orientation Not on file Last Filed Vital Signs Vital Sign Reading Time Taken Comments Blood Pressure 134/66 05/18/2019 11:59 AM CDT Pulse - - Temperature 36.9 C (98.4 F) 05/18/2019 10:50 AM CDT Respiratory Rate 18 05/18/2019 10:50 AM CDT Oxygen Saturation 96% 05/18/2019 10:50 AM CDT Inhaled Oxygen Concentration - - Weight - - Height - - Body Mass Index - - Plan of Treatment Not on file [facility] Care Teams Television Service Engineer Relationship Specialty Start Date End Date No Ref-Primary, Physician PCP - General 05/18/19
--- OUTSIDE RECORDS SUMMARY | 2025-04-05 13:53 | XMS_ITS | Clinical Summary ---
Author Organization [facility] Address [address] [place] [address] Phone Care Team Providers Care Real Estate Salesperson Name Role Phone Unavailable Primary Care Provider Unavailabl e Source Comments [facility] is fully rolled out on [facility] [employer]. Last update 04/29/09.[email or web address] Allergies No known active allergies Medications * Be aware that medications may not be up to date as of this document. Always verify current medications with patient. sertraline (ZOLOFT) 50 mg oral tablet Take 1 tablet (50 mg) by mouth daily. 07/14/2024 Active traZODone (DESYREL) 100 mg oral tablet Take 2 tablets (200 mg) by mouth at bedtime. 08/11/2024 Active acetaminophen (TYLENOL) 325 mg oral tablet Take 3 tablets (975 mg) by mouth every 6 hours as needed for Mild Pain or Moderate Pain. 200 tablet 08/15/2024 1:19 PM CDT 08/15/2024 Active lidocaine (LIDODERM) 5% externally patch Apply for 12 hours then remove for 12 hours 60 patch 08/15/2024 1:19 PM CDT 08/15/2024 Active ondansetron (ZOFRAN) 4 mg oral TABS Dissolve 1 tablet (4 mg) by mouth 3 times daily as needed for Nausea/Vomiti ng. 10 tablet 08/15/2024 Active polyethylene glycol 3350 (MIRALAX/GLUCOL AX) 17 gm/scoop oral powder Take 1 capful to 17 gm marilyn mixed with full glass of water every day as directed. 510 g 08/16/2024 Active sennosides (SENOKOT) 8.6 mg oral tablet Take 2 tablets (17.2 mg) by mouth twice daily. 90 tablet 08/15/2024 Active Active Problems Problem Noted Date Diagnosed Date Traumatic closed fracture of distal clavicle with minimal displacement, right, initial encounter 08/15/2024 Fall from horse, initial encounter 08/14/2024 Social History Tobacco Use Types Packs/Day Years Used Date Smoking Tobacco: Never Assessed Humiliation, Afraid, Rape, and Kick questionnair e Answer Date Recorded Within the last year, have y ou been afraid of your partner or ex-partner? No 08/15/2024 Within the last year, have y ou been humiliated or emotionally abused in other ways by your partner or ex-partner? No Within the last year, have y ou been kicked, hit, slapped, or otherwise physically hurt by your partner or ex-partner? No 08/15/2024 Within the last year, have y ou been raped or forced to have any kind of sexual activity by your partner or ex-partner? No 08/15/2024 Overall Financial Resource Strain (CARDIA) Answe r Date Recorded How hard is it for you to pa y for the very basics like food, housing, medical care, and heating? Not hard at all 08/15/2024 Hunger Vital Sign Answer Date Recorded Within the past 12 months, y ou worried that your food would run out before you got the money to buy more. Never true 08/15/20 24 Within the past 12 months, t he food you bought just didn't last and you didn't have money to get more. Never true 08/15/2024 PRAPARE - Transportation Answer Date Re corded In the past 12 months, has l ack of transportation kept you from medical appointments or from getting medications? No 07/27 In the past 12 months, has l ack of transportation kept you from meetings, work, or from getting things needed for daily living? No 08/15/2024 Housing Stability Answer Date Recorded What is your housing situation today? 3 - I have housing 08/15/2024 Comments Unknown Sex and Gender Information Value Date Recorded Sex Assigned at Not on file Legal Sex Female 4:37 PM CDT Gender Identity Not on file Sexual Orientation Not on file Last Filed Vital Signs Vital Sign Reading Time Taken Comments Blood Pressure 152/80 08/15/2024 9:14 AM CDT Pulse 71 08/15/2024 9:14 AM CDT Temperature 35.9 C (96.7 F) 08/15/2024 8:13 AM CDT Respiratory Rate 22 08/15/2024 9:14 AM CDT Oxygen Saturation 93% 08/15/2024 8:13 AM CDT Inhaled Oxygen Concentration - - Weight 68.9 kg (151 lb 14.4 oz) 024 12:00 AM CDT Height 170.2 cm (5' 7) 08/15/2024 12:0 0 AM CDT Body Mass Index 23.79 08/15/2024 12:00 AM CDT Plan of Treatment Health Maintenance Due Date Last Done Comments CT Colonography 1959 Colonoscopy 1959 Colorectal Cancer Screening 1959 Dental Oral Exam 1959 Dental Prophylaxis 1959 Dental X-Ray: Bitewings 1959 FIT/Cologuard 1959 Hepatitis C Screening 1959 Sigmoidoscopy 1959 iFOB/FIT 1959 Lipid Screening 1960 Periodontal Maintenance 1973 HIV Screening 1974 Medicare Annual Wellness 1977 Imm: Pneumonia 50 years and older (1 of 2 - PCV) 1978 Breast Cancer Screening 01/08/2009 01/08/2007 Imm: Zoster (1 of 2) 2009 Cervical Cancer Screening Age 30-65 06/06/2023 06/06/2018 Osteoporosis Screening (Dexa Scan) 2024 Imm: COVID-19 ( season) 2024 11/10/2021, 02/17/2021 Imm: Flu (#1) 07/26/2024 09/10/2020, /05/2019, 08/29/2009, Additional history exists Imm: DTaP/Tdap (3 - Td or Tdap) 05/18/2029 05/18/2019, 02/22/2014, 08/27/2005, Additional history exists Imm: HPV Aged Out No longer eligi ble based on patient's age to complete this topic Imm: HepA Aged Out No longer eligi ble based on patient's age to complete this topic Imm: HepB Aged Out No longer eligi ble based on patient's age to complete this topic Imm: Hib Aged Out No longer eligi ble based on patient's age to complete this topic Imm: Meningitis Aged Out No longer el igible based on patient's age to complete this topic Insurance MEDICARE Advance Directives For more information, please contact: [phone] * Full Code (Latest Code Status on File) Date Activated Date Inactivated Comments 08/15/2024 12:08 AM 08/15/2024 4:56 PM Question Answer Comments Does the Patient have prefer ences regarding life sustaining measures (these options only apply when the patient has a pulse): No Discussed Code Status With Whom? Not discussed
--- OUTSIDE RECORDS SUMMARY | 2025-04-05 13:53 | XMS_ITS | Clinical Summary ---
Author Organization [facility] Address [address] [place] [address] Care Team Providers Care Senior Energy Analyst Name Role Phone Liliana Mercer DO Primary Care Provider +1- [phone] Allergies No known active allergies Medications ALESSE-28 0.1 MG-20 MCG TABIndications:Gene ral counseling for prescription of oral contraceptives 1 po QD 3-28d pack 4 7 Active ondansetron (ZOFRAN ODT) 4 mg disintegrating tabletIndications:N ausea Place 1 tablet on the tongue every 8 hours if needed for Nausea/Vomit ing. 10 tablet 7 Active trimethoprim-sulfam ethoxazole, 160-800 mg, (BACTRIM DS) tablet TAKE 1 TABLET BY MOUTH TWICE DAILY FOR 5 DAYS 10 tablet 10/28/2017 6:21 PM RESIDENTIAL CHILD CARE COUNSELOR 7 Active nitrofurantoin macrocrystals/monoh ydrate (MACROBID) 100 mg capsule Take 1 capsule by mouth 2 times daily for 7 days. 14 capsule 01/14/2018 12:44 PM RESIDENTIAL CHILD CARE COUNSELOR 8 Active nitrofurantoin macrocrystals/monoh ydrate (MACROBID) 100 mg capsule Take 1 capsule by mouth 2 times daily for 7 days 14 capsule 10/01/2018 1:17 PM RESIDENTIAL CHILD CARE COUNSELOR 8 Active trimethoprim-sulfam ethoxazole, 160-800 mg, (BACTRIM DS, SEPTRA DS) tablet Take 1 tablet by mouth 2 times daily for 7 days. 14 tablet 06/24/2019 6:17 PM CDT 9 Active Active Problems Problem Noted Date Diagnosed Date EATING DISORDER 04/02/2005 CONTRACEPTIVE PRESCRIPTION, ORAL AGENT 2 HIRSUTISM 04/27/2002 HYPERCHOLESTEROLEMIA, PURE 04/27/2002 Immunizations Immunization Administration Dates Next Due Td (Age >=7 Years) 08/27/2005,04/30/2003 Family History Medical History Relation Name Comments Cancer-prostate Father Diabetes Father Heart Disease Father stroke age 77 Genetic Other 1 mother: ? MH is sues - thinks some depression/anxiety~father: heart valve replaced~sibs: 6 kids total, all pretty healthy~grprs: CAD, dementia Genetic Other 2 mother: ? MH is sues - thinks some depression/anxiety~father: heart valve replaced, prostate CA~sibs: 6 kids total, all pretty healthy~grprs: CAD, dementia Genetic Other 3 mother: depress ion ~father: heart valve replaced, prostate CA~sibs: 6 kids total, all pretty healthy~grprs: CAD, dementia Relation Name Status Comments Brother Alive Father Alive Maternal Grandfather Maternal Grandmother (Age 80) Mother Alive Other 1 Other 2 Other 3 Paternal Grandfather Paternal Grandmother Sister Alive x4 Social History Tobacco Use Types Packs/Day Years Used Date Smoking Tobacco: Former Cigarettes Alcohol Use Standard Drinks/Week Comments Yes 0 (1 standard drink = 0.6 oz pur e alcohol) Alcoholic Drinks/day: 0.25 Comments No Sex and Gender Information Value Date Recorded Sex Assigned at Not on file Legal Sex Female 5:46 AM RESIDENTIAL CHILD CARE COUNSELOR Gender Identity Not on file Sexual Orientation Not on file 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 Not on file Not on file Obstetrics History Para Term AB IAB SAB Ectopic Multiple Livin g Live Births 4 2 2 0 0 0 0 0 2 2 Date Outcome GA Total Labor Labor/2nd/3rd Weight Sex Type Anes PTL Cherie A1 A5 Name Clin Term Term 01/14 40w 0d 10h 00m/ 4.54 kg (10 lb) M C-Sec tion Living Priyank 12/26 40w 0d 10h 00m/ 4.54 kg (10 lb) M C-Sec tion Living Cb Last Filed Vital Signs Vital Sign Reading Time Taken Comments Blood Pressure 132/63 02/20/2017 11:00 PM CDT Pulse 67 02/20/2017 11:00 PM CDT Temperature 36.9 C (98.5 F) 02/20/2017 10:30 PM CDT Respiratory Rate 18 02/20/2017 11:0 0 PM CDT Oxygen Saturation 98% 02/20/2017 11: 00 PM CDT Inhaled Oxygen Concentration - - Weight 70.2 kg (154 lb 12.8 oz) 017 10:30 PM CDT Height 170.2 cm (5' 7) 02/20/2017 10:3 0 PM CDT Body Mass Index 24.25 02/20/2017 10:30 PM CDT Plan of Treatment Health Maintenance Due Date Last Done Comments Tdap 1970 Depression screening for age 12+ 1971 HIV for age 15-65 1974 Hepatitis C screening for ag e 18-79 1977 Mammogram for age 45-75 01/08/2008 01/08/20 07, 08/27/2005, 09/08/2004, Additional history exists Pneumococcal series for age 50+ (1 of 1 - PCV) 2009 Zoster (shingles) series for age 50+ (1 of 2) 2009 Lipids for age 45-75 01/08/2012 01/08/2007, 08/27/2005, 06/11/2003, Additional history exists Colonoscopy through age 75 08/27/2015 08/27/2005 Tetanus booster 08/27/2015 08/27/2005, 04/30/2003 BMI (ht and wt on same day) for age 18+ 02/20/2018 02/20/2017 DEXA/DXA scan for age 65+ 2024 COVID-19 vaccine series ( season) 2024 Influenza Vaccine (Season Ended) 2025 Pap test for age 21-65 05/04/2027 , 06/06/2018, 06/06/2018, Additional history exists RSV vaccine for adults or (1 - 1-dose 75+ series) 2034 Procedures Procedure Name Priority Date/Time Associated Diagnosis Comments HPV HIGH RISK Routine 05/04/2024 10:15 AM CDT LIPID PANEL Routine 01/08/2007 12:11 PM RESIDENTIAL CHILD CARE COUNSELOR Screening Lipid Disorders XR MAMMO SCREENING BILATERAL (IA) Routine 01/08/2007 11:10 AM RESIDENTIAL CHILD CARE COUNSELOR Screening Mammogram Other COLONOSCOPY SCREENING Routine 08/27/2005 10:30 AM CDT from Last 3 Months or Most Recently Relevant to Health Maintenance Results * HPV HIGH RISK (05/04/2024 10:15 AM CDT) TYPE 16 Negative Negative 05/07/2024 2:39 PM CDT [facility] TYPE 18 Negative Negative 05/07/2024 2:39 PM CDT [facility] OTHER HIGH RISK TYPES Negative Negative 05/07/2024 2:39 PM CDT [facility] Other (Cervical/Vagina l) 05/04/2024 10:15 AM CDT 05/05/2024 10:16 AM CDT Narrative [facility] - 05/07/2024 2:39 PM CDT HPV types 16, 18, 31, 33, 35, 39, 45, 51, 52, 56, 58, 59, 66 and 68 DNA were undetectable or below the pre-set threshold. Methodology: Jasper Lyndsey 4800 HPV Test Conor Ferrell PA-C MICROBIOLOGY Final Result [facility] [address] [place], [place] [address] * (ABNORMAL) LIPID PANEL (01/08/2007 12:11 PM RESIDENTIAL CHILD CARE COUNSELOR) CHOLESTEROL,TOTAL 206(H) 110 - 199 mg/dL [facility] TRIGLYCERIDES 59 40 - 149 mg/dL [facility] HDL CHOLESTEROL 66 >40 mg/dL [facility] CHOL/HDL RATIO 3.12 <[address] [facility] LDL CHOLESTEROL 128 <131 mg/dL [facility] PATIENT STATUS Fasting [facility] Blood specimen (specimen) BLOOD SPECIMEN / Unknown 01/08/2007 12:11 PM RESIDENTIAL CHILD CARE COUNSELOR 01/08/2007 12:07 PM RESIDENTIAL CHILD CARE COUNSELOR us Liliana Mercer DO CHEMISTRY Final Resu lt [facility] INTERNAL ZIP [id number] [address] * XR MAMMO SCREENING BILATERAL (01/08/2007 11:10 AM RESIDENTIAL CHILD CARE COUNSELOR) Anatomical Region Laterality Modality BREASTS, Breast Left, Breast Right Bilateral Mammography 01/08/2007 11:1 0 AM RESIDENTIAL CHILD CARE COUNSELOR us Liliana Mercer DO MAMMO Final Resu lt * COLONOSCOPY SCREENING (08/27/2005 10:30 AM CDT) COLONOSCOPY Not Applicable 08/27/2005 10:3 0 AM CDT Narrative 08/27/2005 7:41 PM CDT Ordered by an unspecified provider. us Other Clinical Staff GI PROCEDURE ORD Final Resu lt from Last 3 Months or Most Recently Relevant to Health Maintenance Insurance MED[employer] CHOICE Care Teams Senior Energy Analyst Relationship Specialty Start Date End Date Liliana Mercer DO [address] [place] [address] PCP - General 01/07/07
--- OUTSIDE RECORDS SUMMARY | 2025-04-05 13:53 | XMS_ITS | Referral Summary ---
Author Organization [facility] Address [address] [place] [address] Phone Care Team Providers Care Secretary Office Clerk Name Role Phone Unavailable Primary Care Provider Unavailabl e Source Comments [employer] is fully rolled out on [employer]. Last update 04/29/09.[facility] Allergies No known active allergies Medications * [...] 08/15/2024 12:00 AM CDT Plan of Treatment Not on file Insurance MEDICARE Advance Directives For more information, please contact: [phone] * Full Code (Latest Code Status on File) Date Activated Date Inactivated Comments 08/15/2024 12:08 AM 08/15/2024 4:56 PM Question Answer Comments Does the Patient have prefer ences regarding life sustaining measures (these options only apply when the patient has a pulse): No Discussed Code Status With Whom? Not discussed
[2025-04-05 13:57] VITALS: BP 152/72; PULSE 76; RESP 22; TEMP 36.6; O2SAT 98; BMI 23.6
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
--- OUTSIDE RECORDS SUMMARY | 2025-04-05 14:29 | XMS_ITS | Clinical Summary ---
Author Organization [facility] Address [address] [place] [address]. 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
--- OUTSIDE RECORDS SUMMARY | 2025-04-05 14:29 | XMS_ITS | Clinical Summary ---
Author Organization [facility] Address [address] [place] [address] Phone Care Team Providers Care Expressive Music Therapist Name Role Phone Unavailable Primary Care Provider Unavailabl e Source Comments [employer] is fully rolled out on [employer]. Last update 04/29/09.[facility] Allergies No known active allergies Medications * [...] Advance Directives For more information, please contact: [phone] * Full Code (Latest Code Status on File) Date Activated Date Inactivated Comments 08/15/2024 12:08 AM 08/15/2024 4:56 PM Question Answer Comments Does the Patient have prefer ences regarding life sustaining measures (these options only apply when the patient has a pulse): No Discussed Code Status With Whom? Not discussed
--- OUTSIDE RECORDS SUMMARY | 2025-04-05 14:29 | XMS_ITS | Clinical Summary ---
Author Organization [facility] Address [address] [place] [address] Care Team Providers Care Fiscal Accountant Name Role Phone Liliana Mercer DO Primary Care Provider +1- [phone] Allergies No known active allergies Medications ALESSE-28 [...] 5 DAYS 10 tablet 10/28/2017 6:21 PM HEALTH ASSISTANT 7 Active nitrofurantoin macrocrystals/monoh ydrate (MACROBID) 100 mg capsule Take 1 capsule by mouth 2 times daily for 7 days. 14 capsule 01/14/2018 12:44 PM HEALTH ASSISTANT 8 Active nitrofurantoin macrocrystals/monoh ydrate (MACROBID) 100 mg capsule Take 1 capsule by mouth 2 times daily for 7 days 14 capsule 10/01/2018 1:17 PM HEALTH ASSISTANT 8 Active trimethoprim-sulfam ethoxazole, 160-800 mg, (BACTRIM [...] on file Legal Sex Female 5:46 AM HEALTH ASSISTANT Gender Identity Not on file Sexual Orientation [...] CDT LIPID PANEL Routine 01/08/2007 12:11 PM HEALTH ASSISTANT Screening Lipid Disorders XR MAMMO SCREENING BILATERAL (IA) Routine 01/08/2007 11:10 AM HEALTH ASSISTANT Screening Mammogram Other COLONOSCOPY SCREENING Routine 08/27/2005 10:30 AM CDT from Last 3 Months or Most Recently Relevant to Health Maintenance Results * HPV HIGH RISK (05/04/2024 10:15 AM CDT) TYPE 16 Negative Negative 05/07/2024 2:[address] [facility] TYPE 18 Negative Negative 05/07/2024 2:39 PM CDT [facility] OTHER HIGH RISK TYPES Negative Negative 05/07/2024 2:39 PM CDT [facility] Other (Cervical/Vagina l) 05/04/2024 10:15 AM CDT 05/05/2024 10:16 AM CDT Narrative [facility] - 05/07/2024 2:39 PM CDT HPV types 16, 18, 31, 33, 35, 39, 45, 51, 52, 56, 58, 59, 66 and 68 DNA were undetectable or below the pre-set threshold. Methodology: Jasper Lyndsey 4800 HPV Test Conor Ferrell PA-C MICROBIOLOGY Final Result [facility] [address] [place], [place] [address] * (ABNORMAL) LIPID PANEL (01/08/2007 12:11 PM HEALTH ASSISTANT) CHOLESTEROL,TOTAL 206(H) 110 - 199 mg/dL [facility] TRIGLYCERIDES 59 40 - 149 mg/dL [facility] HDL CHOLESTEROL 66 >40 mg/dL [facility] CHOL/HDL RATIO 3.12 <4.51 [facility] LDL CHOLESTEROL 128 <131 mg/dL [facility] PATIENT STATUS Fasting [facility] Blood specimen (specimen) BLOOD SPECIMEN / Unknown 01/08/2007 12:11 PM HEALTH ASSISTANT 01/08/2007 12:07 PM HEALTH ASSISTANT us Liliana Mercer DO CHEMISTRY Final Resu lt [facility] INTERNAL ZIP [id number] [address] * XR MAMMO SCREENING BILATERAL (01/08/2007 11:10 AM HEALTH ASSISTANT) Anatomical Region Laterality Modality BREASTS, Breast Left, Breast Right Bilateral Mammography 01/08/2007 11:1 0 AM HEALTH ASSISTANT us Liliana Mercer DO MAMMO Final Resu lt * COLONOSCOPY SCREENING (08/27/2005 10:30 AM CDT) COLONOSCOPY Not Applicable 08/27/2005 10:3 0 AM CDT Narrative 08/27/2005 7:41 PM CDT Ordered by an unspecified provider. us Other Clinical Staff GI PROCEDURE ORD Final Resu lt from Last 3 Months or Most Recently Relevant to Health Maintenance Insurance [employer] CHOICE Care Teams Fiscal Accountant Relationship Specialty Start Date End Date Liliana Mercer DO [address] [place] [address] PCP - General 01/07/07
--- OUTSIDE RECORDS SUMMARY | 2025-04-05 14:29 | XMS_ITS | Referral Summary ---
Author Organization [facility] Address [address] [place] [address] Phone Care Team Providers Care Supply Requirements Officer Name Role Phone Unavailable Primary Care Provider Unavailabl e Source Comments [employer] is fully rolled out on [employer]. Last update 04/29/09.[facility] Allergies No known active allergies Medications * [...] Advance Directives For more information, please contact: [phone] * Full Code (Latest Code Status on File) Date Activated Date Inactivated Comments 08/15/2024 12:08 AM 08/15/2024 4:56 PM Question Answer Comments Does the Patient have prefer ences regarding life sustaining measures (these options only apply when the patient has a pulse): No Discussed Code Status With Whom? Not discussed
[2025-04-05 14:41] LABS: Creatinine, Point-of-Care* 0.9 mg/dl (0.6-1.3)
[2025-04-05 14:45] LABS: Basophils Absolute Auto 0.03 K/uL (0.00-0.30); Basophils Percent Auto 0.4 % (0.0-3.0); Eosinophils Absolute Auto 0.05 K/uL (0.00-0.50); Eosinophils Percent Auto 0.7 % (0.0-7.0); Hematocrit 41.2 % (33.0-51.0); Hemoglobin* 13.4 gm/dL (12.0-16.0); Immature Granulocytes Abs Auto 0.02 K/uL (0.00-0.30); Immature Granulocytes Pct Auto 0.3 %; Lymphocytes Absolute Auto 1.82 K/uL (0.90-2.90); Lymphocytes Percent Auto 25.7 % (20-44); Mean Corpuscular HGB Conc 33 gm/dL (32-36); Mean Corpuscular Hemoglobin 29 pg (26-34); Mean Corpuscular Volume 90 fL (80-100); Monocytes Percent Auto 9.3 % (0.0-11.0); Neutrophils Absolute Auto 4.51 K/uL (1.7-7.0); Neutrophils Percent Auto 63.6 % (42.0-72.0); Platelet Count* 229 K/uL (140-440); RDW Coefficient of Variation % 13.4 % (11.5-15.5); Red Blood Count 4.56 m/uL (4.00-5.20); White Blood Count* 7.09 K/uL (4.50-11.00)
[2025-04-05 14:52] LABS: Troponin, Point-of-Care* 0.02 ng/ml (0.01-0.04)
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
[2025-04-05 14:57] LABS: Slide Review Reflex No
[2025-04-05 15:41] VITALS: BP 149/74; PULSE 80; RESP 18; TEMP 36.7
[2025-04-05 16:40] LABS: Chloride* 104 mmol/L (96-114); Sodium* 138 mmol/L (135-149)
[2025-04-05 16:41] LABS: Potassium* 4.3 mmol/L (3.6-5.1)
[2025-04-05 16:43] LABS: Blood Urea Nitrogen* 19 mg/dL (7-30); Creatinine* 0.7 mg/dL (0.5-1.5); Est. Creatinine Clearance* 52.51; Estimated Glomerular Filt Rate 96 ml/min
[2025-04-05 16:44] LABS: Anion Gap 6 mEq/L (7-15); Calcium* 10.3 mg/dL (8.4-10.6); Carbon Dioxide* 28 mmol/L (20-32); Glucose* 95 mg/dL (60-115)
== END 2025-04-05 15:41 | disposition home or self-care (01) ==
PROVIDERS: Emergency Provider Student in an Organized Health Care Education/Training Program; PCP Physician Assistant Medical
DX: S20.211A Contusion of right front wall of thorax, initial encounter (principal); M79.621 Pain in right upper arm; R91.1 Solitary pulmonary nodule; V43.52XA Car driver injured in collision with other type car in traffic accident, initial encounter; S16.1XXA Strain of muscle, fascia and tendon at neck level, initial encounter
CPT/HCPCS: 36415; 71260; 73030; 73060; 80048; 82565; 84484; 85025; 93005; 99284; 99285; Q9967

== ENCOUNTER 2025-08-04 13:27 | Outpatient (CLI) | payer MEDICARE, OTHER, SELFPAY ==
--- NOTE | 2025-08-04 13:40 | CRLHL7_ITS ---
For Patients: As a result of the Century Cures Act, medical imaging exams and procedure reports are released immediately into your electronic medical record. You may view this report before your referring provider. If you have questions, please contact your health care provider. INDICATION: BILATERAL SCREENING MAMMOGRAM, ASYMPTOMATIC 65 Y/O FEMALE COMPARISON: 09/30/2023, 04/30/2022, 01/06/2021 TECHNIQUE: Digital mammogram in CC and MLO projections including computer-aided detection (CAD) and tomosynthesis. BREAST COMPOSITION: The breasts are heterogeneously dense, which may obscure small masses. FINDINGS: No suspicious findings. ASSESSMENT: BI-RADS 1 Negative RECOMMENDATION: Annual screening mammogram. A lay language report of this examination will be provided to the patient. Dictated by: Luis Caldwell MD @ 08/05/2025 08:10:35 (Electronically Signed)
== END 2025-08-04 13:28 | disposition home or self-care (01) ==
LOC: MAMMO 13:27
PROVIDERS: PCP Physician Assistant Medical; Visit Provider Physician Assistant Medical
DX: Z12.31 Encounter for screening mammogram for malignant neoplasm of breast (principal); R92.333 Mammographic heterogeneous density, bilateral breasts
CPT/HCPCS: 77063; 77067